=== PATIENT | female | born 1960 | race Caucasian/White ===

== ENCOUNTER → 2017-11-10 | Outpatient (CLI) | payer OTHER | LOC: BRMIMAGING 07:37 | PROVIDERS: ATTEND Family Medicine | DX: Z12.31 Encounter for screening mammogram for malignant neoplasm of breast (principal); R92.8 Other abnormal and inconclusive findings on diagnostic imaging of breast ==

== ENCOUNTER → 2017-12-09 | Outpatient (CLI) | payer OTHER | LOC: BRMIMAGING 08:51 | DX: Z03.89 Encounter for observation for other suspected diseases and conditions ruled out (principal) ==